=== PATIENT | male | born 1970 | race Caucasian/White ===

== ENCOUNTER 2019-01-31 16:02 | Emergency (ER) | payer BC, SELFPAY ==
[2019-01-31 16:04] VITALS: BP 165/86; PULSE 95; RESP 16; TEMP 36.3; O2SAT 98; BMI 39.2
[2019-01-31] MEDS: HYDROmorphone 1 MG/ML Syringe IM ×2 (16:36→18:03)
--- NOTE | 2019-01-31 17:46 | ED.VISSUMM ---
- ER Visit Summary Date of Service: 01/31/19 Chief Complaint: [Abdominal pain] History of Present Illness: The patient is a 48 M [presents to the emergency department complaint of abdominal pain that he said for about 2 days. Patient states that he coughed and developed the pain. Patient was seen at the emergency department at [facility] yesterday and had a CT scan including blood work and was told that he may have a small kidney stone near the prostate and the urethra. Patient states the pain feels different than kidney stones which she is had in the past. Patient states the pain is sharp and severe especially worse with movement and cough. Patient was seen by his primary care physician today and referred to the emergency department because of continued pain. Patient also had complained of having one episode of black tarry stool yesterday. Denies any fever. He denies nausea or vomiting. Patient has history of kidney stones.] Physical Examination: [HEENT-PERRLA, EOMI. Cranial nerves II through XII grossly intact. TMs clear. Mucous membranes moist. No adenopathy. Cardiovascular-regular rate and rhythm without murmur or ectopy Lungs-clear to auscultation, chest wall stable without crepitus or subcu emphysema Abdomen-normoactive bowel sounds, soft. Patient has tenderness over the left abdomen that reproduces his pain especially the abdominal musculature. Patient also has some tenderness over the left lower ribs anteriorly. There is no rebound, rigidity, or pedal signs. Extremities-intact ?4, normal range of motion, normal pulses, atraumatic] Test Results: [Patient refused any testing other than I did do a Hemoccult which was negative for blood. Able to retrieve the patient's information from yesterday's visit in the emergency department at [place] which time he had a white blood cell count of 11.1, hemoglobin 15.5, hematocrit 45, platelets 255. Chemistries were unremarkable. His glucose was 244. His lactate was slightly elevated 2.4. Patient had a CT scan of the M pelvis without contrast was read by radiology as no abscess obstruction on flat Tory process noted. Patient had a tiny left renal calculus measuring 2 mm as well as questionable central urethral stone at the level of the prostate.] Emergency Department Course and Treatment: [She was medicated with Dilaudid 1 mg IM and he continued complaint of pain was given a second dose of Dilaudid IM. I offered to repeat some of the blood work and potentially perform repeat imaging however he is refusing and states that he just wants something for the pain in he will follow-up with his primary care physician. I suspect most likely etiology is abdominal wall strain.] Also offered to admit him for pain control which she refused. Treatment Plan: [We will up with primary care physician 3 to 5 days. Patient advised to return if worsening pain, fever, vomiting, or conditions worsen anyway.] Disposition: [Discharged home in stable condition.] Impression: [Abdominal pain-suspect abdominal wall strain] This note was generated with [email or web address] dictation software. It may contain incorrect words, spelling, and punctuation that were not noted in review of the chart prior to signing ED Disposition - Plan for ED Patient: Referrals: Vik Javed MD [Primary Care Provider] -
--- NOTE | 2019-01-31 17:50 | ED.DEP ---
ED Disposition - Plan for ED Patient: Instructions: ABDOMINAL PAIN, Unkown Cause, (Male) Prescriptions: Oxycodone [Oxyir] 5 mg PO Q4H PRN PRN 4 Days #14 tab PRN Reason: Pain Score 4-10/10 Prescription Printed Referrals: Vik Javed MD [Primary Care Provider] - 3-5 Days
[2019-01-31 18:20] VITALS: BP 146/96; PULSE 86
[2019-01-31 18:23] VITALS: BP 146/96; PULSE 86; RESP 17
== END 2019-01-31 18:25 | disposition home or self-care (01) ==
LOC: ED 16:43
PROVIDERS: Emergency Provider Emergency Medicine; Family Provider Family Medicine; PCP Family Medicine
DX: S39.011A Strain of muscle, fascia and tendon of abdomen, initial encounter (principal); N20.0 Calculus of kidney; R19.5 Other fecal abnormalities; X58.XXXA Exposure to other specified factors, initial encounter; Y93.9 Activity, unspecified; Y92.9 Unspecified place or not applicable; Z87.442 Personal history of urinary calculi; F17.200 Nicotine dependence, unspecified, uncomplicated
CPT/HCPCS: 82274; 96372; 99282

== ENCOUNTER 2019-02-08 14:35 | Emergency (ER) | payer BC, SELFPAY ==
[2019-02-08 14:37] VITALS: BP 179/91; PULSE 118; RESP 18; TEMP 36.8; O2SAT 96; BMI 39.4
[2019-02-08 14:45] LABS: Bedside Glucose 204 mg/dL (70-110)
--- NOTE | 2019-02-08 15:04 | EKG12_ITS ---
Test Reason : Blood Pressure : / mmHG Vent. Rate : 100 BPM Atrial Rate : 100 BPM P-R Int : 124 ms QRS Dur : 074 ms QT Int : 334 ms P-R-T Axes : 048 046 030 degrees QTc Int : 430 ms Normal sinus rhythm Normal ECG Confirmed by KIKO SORIA, MARILEE ([id number]), managing editor ROBBIE NIETO ([id number]) on 02/12/2019 9:25:16 AM Referred By: CHIARA Confirmed By:NATALY HOOVER MD
--- NOTE | 2019-02-08 15:05 | CT_ITS ---
STUDY: CT ABDOMEN AND PELVIS WITH CONTRAST REASON FOR EXAM: Male, 48 years old. Pain RADIATION DOSAGE (If Supplied By Facility): DLP = ( 1230.69 ) mGycm TECHNIQUE: Transaxial images were obtained from the dome of the diaphragm to the symphysis pubis without oral contrast. 100 ml of Gastrografin and amp;amp; 100mL Isovue-370 contrast was administered. Sagittal and coronal images were reconstructed. Individualized dose optimization techniques were used for this CT. COMPARISON: None. FINDINGS: The visualized lung bases are clear. The visualized portions of the heart and pericardium are within normal limits. There are no calcified gallstones present. The liver is within normal limits. There are no suspicious hepatic lesions. The spleen is normal in size. The pancreas is within normal limits. The adrenal glands are within normal limits. There are no obstructing renal stones. There is no hydronephrosis. There are no focal renal lesions. Normal visualized stomach. There is no bowel obstruction or inflammation. There is a small right inguinal fat-containing hernia. The appendix is normal. The aorta is normal in caliber. There is no abdominal or pelvic free air, free fluid, fluid collection or lymphadenopathy. There are no destructive osseous lesions. CT/Abdomen/Pelvis WITH Contrast IMPRESSION: No acute abdominal or pelvic pathology. Small right inguinal fat-containing hernia. Electronically Signed: Jey Hawkins, at 17:12 EST Tel , Service support ,
--- NOTE | 2019-02-08 15:06 | ED.VISSUMM ---
- ER Visit Summary Date of Service: 02/08/19 Chief Complaint: Abdominal pain History of Present Illness: The patient is a 48 M who presents with abdominal pain that has been progressively worse over the past 2 weeks. Patient states the pain is worse over the left upper quadrant. Patient states the pain is also in the periumbilical area. Patient admits to nausea but denies any vomiting. Patient admits to diarrhea but denies any melena or hematochezia. Patient admits to some hematuria. Patient states he was recently diagnosed with a kidney stone. Patient states his pain is constant aching but sharp with coughing. Physical Examination: Vital signs are stable except for mild tachycardia of 118. Patient is afebrile. Patient is in no acute distress. Oral mucosa is pink and moist. Neck is supple. Trachea is midline. There is no JVD. Heart was regular and tachycardic. Lungs are clear and equal bilaterally. Abdomen is soft. Bowel sounds are normal. There is left upper quadrant and right upper quadrant tenderness. There is no rebound noted. There is some voluntary guarding noted. Cranial nerves II through XII are intact. There are no focal motor or sensory deficits noted. Test Results: CBC shows a mild leukocytosis of 13.9. Comprehensive metabolic profile showed a glucose of 191 but was otherwise within normal limits. Urinalysis showed occult blood of 25 and ketones of 15 but there is no evidence of urinary tract infection. CT scan of the abdomen and pelvis was obtained. There is no acute intra-abdominal pathology noted. EKG showed normal sinus rhythm with a rate of 100. There is no acute ST or T wave changes. Emergency Department Course and Treatment: Patient was given a dose of morphine and Zofran here. Patient was still having pain but his nausea was improved. Patient complained of worsening heartburn as well. Patient was given a GI cocktail and a repeat dose of morphine. Case was discussed with Dr. Rosas who is covering for Dr. Javed. He recommended obtaining a hemoglobin A1c and patient will follow up with Dr. Javed in the office. Patient was given a prescription for Prilosec. Patient understood and was agreeable with the plan. All questions were answered. Disposition: Discharge home Impression: Left upper quadrant abdominal pain This note was generated with [employer]ation software. It may contain incorrect words, spelling, and punctuation that were not noted in review of the chart prior to signing ED Disposition - Plan for ED Patient: Disposition: Home or Assisted Living Diagnosis: Left upper quadrant abdominal pain of unknown etiology Instructions: ABDOMINAL PAIN, Unkown Cause, (Male) Prescriptions: Omeprazole [Prilosec] 20 mg PO DAILY #30 cap Prescription Printed Referrals: Vik Javed MD [Primary Care Provider] - 3-5 Days
[2019-02-08] MEDS: 0.9% Normal Saline 1,000 ML 1000 ML IV (15:16)
[2019-02-08] MEDS: Morphine 4 MG/ML Syringe IV ×2 (15:16→18:51)
[2019-02-08] MEDS: Ondansetron 4 MG/2 ML Vial IV (15:16)
[2019-02-08 15:22] LABS: Absolute Lymphocyte Count 4.34 X10^3/uL (0.83-4.51); Absolute Neutrophil Count 8.6 X10^3/uL (2.0-7.7); Basophil# 0.05 X10^3/uL; Basophil% 0.4 % (0-1); Eosinophil# 0.09 X10^3/uL; Eosinophils% 0.6 % (0-5); Hemoglobin 15.3 g/dL (13.0-16.5); Lymphocyte # 4.34 X10^3/ul (4.0); Lymphocyte % 31.2 % (19-41); Mean Corp Hgb Conc 34.8 g/dL (32-36); Mean Corpuscular Volume 89.2 fL (80-94); Mean Platelet Vol. 11.2 fl (6.2-12.0); Monocyte# 0.77 X10^3/uL; Monocyte% 5.5 % (0-10); NRBC Flagged by Analyzer 0 % (0-5); Neutrophil % 61.7 % (47-70); Platelet Count 247 K/mm3 (150-450); RBC Distribution Width CV 11.9 % (11.6-14.6); RBC Distribution Width SD 38.5 fl (35.1-43.9); Red Blood Count 4.93 M/mm3 (4.6-6.2); White Blood Count 13.9 K/mm3 (4.4-11.0)
[2019-02-08 15:34] LABS: AST(SGOT) 28 U/L (15-37); Alanine Aminotransfer ALT/SGPT 57 U/L (16-61); Albumin, Serum 3.7 g/dL (3.2-5.0); Alkaline Phosphatase 75 U/L (45-117); Anion Gap 8 (5-15); BUN 14 mg/dL (7-18); BUN/Creat Ratio 16.4 RATIO (10-20); Calcium,Total 8.9 mg/dL (8.5-10.1); Chloride 106 mmol/L (98-107); Creatinine, Serum 0.85 mg/dL (0.70-1.30); EST Glomerular Filtration Rate 102 mL/min (>60); Est Glom Filt Rate - Afr Amer 123 mL/min (>60); Estimated Creatinine Clearance 107.44 ml/min; Globulin 3.7 g/dL (2.2-4.2); Glucose 191 mg/dL (74-106); Lipase 191 U/L (73-393); Potassium 3.8 mmol/L (3.5-5.1); Protein, Total 7.4 g/dL (6.4-8.2); Sodium Level 140 mmol/L (136-145)
[2019-02-08 16:34] LABS: Bacteria 0 SEEN /hpf (None Seen); Mucous, Urine 0 SEEN /hpf (<or=2+); Squamous Epithelial Cells - UA 0 SEEN /hpf (0-5)
[2019-02-08 16:38] LABS: Color, Urine Yellow (Yellow); Glucose, Dipstick 250 mg/dl (Normal); Ketone-Dipstick 15 mg/dl (Negative); Leukocyte Esterase-Dipstick Negative /ul (Negative); Nitrite-Dipstick Negative (Negative); Occult Blood-Urine 25 /ul (Negative); Protein-Dipstick Negative (Negative); Specific Gravity, Urine 1.025 (1.002-1.030); Urine Bilirubin Dipstick Negative (Negative); Urine Clarity Clear (Clear); Urine Urobilinogen Normal (Normal)
[2019-02-08 16:47] LABS: Red Blood Cells-Urine 0-5 SEEN /hpf (0-5); White Blood Cells 0-5 SEEN /hpf (0-5)
[2019-02-08 17:00] VITALS: PULSE 95; RESP 16; O2SAT 95
[2019-02-08 18:02] LABS: Lactic Acid 1.1 mmol/L (0.4-2.0)
[2019-02-08] MEDS: Mag Hydrox/Al Hydrox/Simeth 30 ML UDC PO (18:51)
[2019-02-08 19:07] LABS: Hemoglobin A1c 6.9 % (4.2-6.3)
[2019-02-08 19:26] VITALS: BP 114/71; PULSE 89; RESP 16; O2SAT 96
== END 2019-02-08 19:36 | disposition home or self-care (01) ==
PROVIDERS: Emergency Provider Emergency Medicine; Family Provider Family Medicine; PCP Family Medicine
DX: R10.12 Left upper quadrant pain (principal); R10.33 Periumbilical pain; R11.0 Nausea; R19.7 Diarrhea, unspecified; R31.9 Hematuria, unspecified; R68.83 Chills (without fever); R00.2 Palpitations; R05 Cough; M54.9 Dorsalgia, unspecified; K21.9 Gastro-esophageal reflux disease without esophagitis; L40.9 Psoriasis, unspecified; Z87.442 Personal history of urinary calculi; F17.200 Nicotine dependence, unspecified, uncomplicated
CPT/HCPCS: 74177; 80053; 81001; 82009; 82962; 83036; 83605; 83690; 85025; 93005; 96361; 96374; 96375; 96376; 99283; J7030; Q9967; A4216; J2405

== ENCOUNTER → 2019-11-15 16:26 | Outpatient (CLI) | payer BC, SELFPAY ==
[2019-11-15 18:00] LABS: Anion Gap 6 (5-15); BUN 12 mg/dL (7-18); BUN/Creat Ratio 13.2 RATIO (10-20); Chloride 104 mmol/L (98-107); Cholesterol 154 mg/dL (200); Creatinine, Serum 0.91 mg/dL (0.70-1.30); EST Glomerular Filtration Rate 95 mL/min (>60); Est Glom Filt Rate - Afr Amer 115 mL/min (>60); Glucose 102 mg/dL (74-106); High Density Lipoprotein 37 mg/dL; Sodium Level 139 mmol/L (136-145); Triglycerides 161 mg/dL; Very Low Density Lipoprotein 32 mg/dL (5-40)
== END ==
PROVIDERS: PCP Family Medicine; Referring Provider Family Medicine; Visit Provider Family Medicine
DX: E11.9 Type 2 diabetes mellitus without complications (principal)
CPT/HCPCS: 36415; 80048; 80061

== ENCOUNTER → 2020-01-17 16:33 | Outpatient (CLI) | payer BC, SELFPAY ==
--- NOTE | 2020-01-17 16:36 | RAD_ITS ---
HISTORY: knee pain Technique: Right Knee; AP, lateral, and oblique radiographs Comparison: None available Findings: No acute fracture or dislocation. Osseous mineralization, joint spaces, and alignment otherwise appear preserved as imaged. The distal metatarsal to the right knee is thickened and asymmetric. This thickening is much greater medially. No focal abnormality or radiopaque foreign body is seen in the surrounding soft tissues. RAD/Knee 4 or More Views IMPRESSION: Asymmetric thickening to the medial aspect of the distal femoral metaphysis. This is likely related to an osteochondroma. Appearance on the lateral aspect of the proximal metaphysis of the tibia, at the proximal tibiofibular articulation may be due to another osteochondroma. at 0600 Reported and signed by: Gregory Downey MD Electronically Signed: Gregory Downey MD at 5:59 EDT Tel , Service support ,
--- NOTE | 2020-01-17 16:36 | RAD_ITS ---
STUDY: X-RAY - LEFT KNEE REASON FOR EXAM: Male, 49 years old. knee pain TECHNIQUE: 4 view(s) of the knee. COMPARISON: None. FINDINGS: Normal visualized distal femur. Healed fractures the proximal tibia and fibula. Normal proximal tibiofibular articulation. Normal medial femorotibial compartment. Normal lateral femorotibial compartment. Normal patellofemoral articulation. The soft tissue structures are unremarkable. RAD/Knee 4 or More Views IMPRESSION: Healed fractures of the proximal tibia and fibula. No acute fracture or dislocation. Electronically Signed: Ernesto Ríos MD at 7:49 EDT Tel , Service support ,
== END ==
LOC: MTRAD 16:35
PROVIDERS: PCP Family Medicine; Referring Provider Family Medicine; Visit Provider Family Medicine
DX: M25.562 Pain in left knee (principal); M25.561 Pain in right knee
CPT/HCPCS: 73564

== ENCOUNTER → 2020-02-05 | Outpatient (CLI) | payer BC, SELFPAY | END | disposition home or self-care (01) | LOC: LABSPEC 17:42 | PROVIDERS: PCP Family Medicine; Visit Provider Physician Assistant Surgical | DX: Z20.828 Contact with and (suspected) exposure to other viral communicable diseases (principal) | CPT/HCPCS: 87635; U0003 ==

== ENCOUNTER → 2020-03-27 17:03 | Outpatient (CLI) | payer BC, SELFPAY ==
[2020-03-27 18:19] LABS: Hemoglobin A1c 5.7 % (3.8-5.6)
[2020-03-27 18:52] LABS: ALB/GLOB Ratio 1.2 RATIO (0.9-2.4); AST(SGOT) 11 U/L (15-37); Alanine Aminotransfer ALT/SGPT 29 U/L (16-61); Alkaline Phosphatase 63 U/L (45-117); Anion Gap 6 (5-15); BUN 17 mg/dL (7-18); BUN/Creat Ratio 20.5 RATIO (10-20); Calcium,Total 8.8 mg/dL (8.5-10.1); Chloride 104 mmol/L (98-107); Cholesterol 146 mg/dL (200); Creatinine, Serum 0.83 mg/dL (0.70-1.30); EST Glomerular Filtration Rate 105 mL/min (>60); Est Glom Filt Rate - Afr Amer 127 mL/min (>60); Globulin 3.4 g/dL (2.2-4.2); Glucose 100 mg/dL (74-106); High Density Lipoprotein 35 mg/dL; Potassium 3.8 mmol/L (3.5-5.1); Protein, Total 7.4 g/dL (6.4-8.2); Sodium Level 137 mmol/L (136-145); Thyroid Stim Hormone (TSH) 0.72 uIU/mL (0.358-3.74); Triglycerides 176 mg/dL; Very Low Density Lipoprotein 35 mg/dL (5-40)
== END ==
PROVIDERS: PCP Family Medicine; Referring Provider Family Medicine; Visit Provider Family Medicine
DX: I10 Essential (primary) hypertension (principal); E11.9 Type 2 diabetes mellitus without complications
CPT/HCPCS: 36415; 80053; 80061; 83036; 84443

== ENCOUNTER → 2020-04-11 10:03 | Outpatient (CLI) | payer BC, SELFPAY | PROVIDERS: PCP Family Medicine; Referring Provider Physician Assistant Surgical; Visit Provider Physician Assistant Surgical | DX: Z11.59 Encounter for screening for other viral diseases (principal) | CPT/HCPCS: 87635; C9803; U0005; U0003 ==

== ENCOUNTER → 2021-03-17 | Outpatient (CLI) | payer BC, SELFPAY | END | disposition home or self-care (01) | LOC: LABSPEC 14:50 | PROVIDERS: PCP Family Medicine; Visit Provider Nurse Practitioner Family | DX: J06.9 Acute upper respiratory infection, unspecified (principal) | CPT/HCPCS: 87633; 87635; U0005; U0003 ==

== ENCOUNTER 2022-02-18 16:20 | Outpatient (CLI) | payer OTHER, SELFPAY ==
--- NOTE | 2022-02-18 16:27 | RAD_ITS ---
INDICATION: HEEL PAIN EXAMINATION/TECHNIQUE: X-RAY - LEFT XR Calcaneus Min 2 Views 2 VIEWS COMPARISON: None. FINDINGS: SOFT TISSUES: No soft tissue swelling or gas. No radiopaque foreign body. BONES/JOINTS: No acute fracture. Preservation of the joint spaces. No sclerotic or destructive changes observed. RAD/Calcaneus min 2 Views IMPRESSION: Unremarkable study. Electronically Signed: Alex Scales MD at 21:28 EST ,
== END 2022-02-18 23:59 | disposition home or self-care (01) ==
PROVIDERS: PCP Family Medicine; Referring Provider Family Medicine; Visit Provider Family Medicine
DX: M79.672 Pain in left foot (principal)
CPT/HCPCS: 73650

== ENCOUNTER → 2022-03-25 | Outpatient (CLI) | payer OTHER, SELFPAY ==
[2022-03-25 18:18] LABS: Anion Gap 10 (5-15); BUN 16 mg/dL (7-18); BUN/Creat Ratio 22.8 RATIO (10-20); Calcium,Total 9.3 mg/dL (8.5-10.1); Chloride 100 mmol/L (98-107); Cholesterol 152 mg/dL (200); EST Glomerular Filtration Rate 126 mL/min (>60); Est Glom Filt Rate - Afr Amer 152 mL/min (>60); Glucose 93 mg/dL (74-106); High Density Lipoprotein 37 mg/dL; Sodium Level 137 mmol/L (136-145); Triglycerides 226 mg/dL; Very Low Density Lipoprotein 45 mg/dL (5-40)
== END | disposition home or self-care (01) ==
LOC: MFPLAB 16:13
PROVIDERS: PCP Family Medicine; Visit Provider Family Medicine
DX: E11.9 Type 2 diabetes mellitus without complications (principal)
CPT/HCPCS: 36415; 80048; 80061

== ENCOUNTER → 2022-05-27 | Outpatient (CLI) | payer OTHER, SELFPAY ==
[2022-05-29 15:07] LABS: QNTFERON TB Mitogen Value > 10.00 IU/mL (.); QNTFERON TB Nil Value 0.01 IU/mL (.); QNTFERON TB1+ Ag Value 0.01 IU/mL (.); QNTFERON TB2+ Ag Value 0 IU/mL (.)
[2022-05-29 15:17] LABS: Hepatitis B Core Ab Total Negative (Negative); QNTIFERON TB Positive Criteria Negative (Negative)
== END | disposition home or self-care (01) ==
LOC: MFPLAB 15:46
PROVIDERS: PCP Family Medicine; Visit Provider Physician Assistant Medical
DX: L40.0 Psoriasis vulgaris (principal); L40.59 Other psoriatic arthropathy; Z79.899 Other long term (current) drug therapy; L40.8 Other psoriasis
CPT/HCPCS: 36415; 86480; 86704

== ENCOUNTER → 2023-05-24 | Outpatient (CLI) | payer OTHER, SELFPAY ==
--- NOTE | 2023-05-24 07:33 | VDLE_ITS ---
Reason For Study: LLE Pain RIGHT LEFT CFV is compressible, spontaneous, phasic, GSV is normal. competent and demonstrates normal CFV is compressible, spontaneous, phasic, augmentation. competent, and demonstrates normal Procedure augmentation. This is a venous duplex using B-mode, color FV is compressible, spontaneous, phasic, flow and spectral Doppler. competent and demonstrates normal Exam performed in department. augmentation. The exam was diagnostic. POP V is compressible, spontaneous, phasic, A preliminary report was called and/or faxed competent and demonstrates normal to Dr. Javed office. augmentation. T/P Trunk is compressible. PTV is compressible. LT PerV is compressible. VL/Venous Duplex US, Unilateral Interpretation Summary There is no evidence of left lower extremity deep vein thrombosis. Left great s aphenous vein appears patent and compressible segmentally. Normal flow patterns right common femoral vein Ordering Physician: Vik Javed Referring Physician: Vik Javed Performed By: Leland Maria RVT
--- OUTSIDE RECORDS SUMMARY | 2023-05-24 08:04 | XMS RPT_ITS | CCD ---
Author Name Unknown Address [address] [place] [address] Organization [facility] Care Team Providers Care Gold Tooler Name Role Phone DEBORA POTTS Unavailable Unavailable POTTS, RAY Unavailable Unavailable NO REFERRING DR Unavailable Unavailable [facility] Unavailable Unavailable POTTS III, RAY ANN MARIE Unavailable Unavaila ble POTTS III, RAY ANN MARIE Unavailable Unavaila Vik Rhoades Primary Care Provider Vik Watts Primary Care Provider [phone] Vik Watts Primary Care Provider [phone] Vik Watts MD Primary Care Provider IWONA SORIA, PA Lee Attending Unavail sonia WATTS MD, DR VIK Quezada Primary Care Unavailabl e Allergies Allergy Classification Reported Allergen(s) Allergy Type Date of Onset Reaction(s) Facility (7 sources) Penicillins; Translations: [PENICILLINS] Propensity to adverse reactions (disorder) 5 Other (See Comments), GI Upset [facility] (4 sources) Acetaminophen Drug Allergy 7 Other (See Comments) [place] (2 sources) Lisinopril Drug Allergy 0 Other (See Comments) [place] Medications Current Medications Medication Drug Class(es) Dates Sig (Normalized) Sig (Original) [id number] 200 actuat albuterol 0.09 mg/actuat metered dose inhaler (1 source) beta2-Adrenergic Agonist Start: 10-05-2021 take 2 puff(s) by inhalation every six hours as needed for wheezing albuterol HFA (PROVENTIL HFA, VENTOLIN HFA) 90 mcg/actuation inhaler Indications: Wheezing Inhale 2 Puffs as instructed every 6 hours as needed for wheezing/shortnes s of breath. 1 Inhaler 0 10/05/2021 Active Completed/Discontinued Medications Medication Drug Class(es) Dates Sig (Normalized) Sig (Original) aspirin 81 mg delayed release oral tablet (1 source) Platelet Aggregation Inhibitor, Nonsteroidal Anti-inflammatory Drug Start: 02-14-2017 End: 01-30-2019 take 1 tablet by mouth once daily aspirin EC 81 MG EC tablet Take 1 tablet by mouth daily 30 tablet 0 02/14/2017 01/30/2019 Discontinued cyclobenzaprine hydrochloride 10 mg oral tablet (1 source) Muscle Relaxant Start: 03-22-2014 take 1 tablet by mouth three times daily as needed for muscle spasms cyclobenzaprine (FLEXERIL) 10 mg tablet Indications: Right shoulder pain , Trapezius muscle spasm Take 1 tablet by mouth three times daily as needed for Muscle Spasm. Causes drowsiness. 15 tablet 0 03/22/2014 Active Problems Active Problems Problem Classification Problem Date Documented Da te Episodic/Chronic Diabetes mellitus without complication (2 sources) Diabetes mellitus; Translations: [DM (diabetes mellitus)] 09-10-2019 Chronic Immunizations and screening for infectious disease (1 source) Suspected disease caused by 2019-nCoV; Translations: [Suspected COVID-19 virus infection] Episodic Nonspecific chest pain (5 sources) Chest pain; Translations: [Precordial pain] 09-04-2019 Episodic Other lower respiratory disease (1 source) Wheezing; Translations: [Wheezing] Episodic Unclassified (1 source) Unknown / UNK(Unknown) Onset: 12-10-2016 Past or Other Problems Problem Classification Problem Date Documented Da te Episodic/Chronic Abdominal pain (1 source) Upper abdominal pain; Translations: [Pain of upper abdomen] Episodic Calculus of urinary tract (1 source) Renal colic; Translations: [Renal colic] Episodic Other connective tissue disease (4 sources) Rupture of tendon of biceps, long head; Translations: [Rupture long head biceps tendon, right, initial encounter] Onset: 01-18-2017 06-27-2017 Episodic Sprains and strains (4 sources) Sprain of upper extremity; Translations: [Sprain of right upper arm] Onset: 01-18-2017 06-27-2017 Episodic Unclassified (1 source) RIGHT SHOULDER, SPRAIN Onset: 12-10-2016 Results Test Name Value Interpretation Reference Range Facil ity Vital Signs Date Time Vital Sign Value Performing Clinician Facility 10-05-2021 08:25-0400 Body temperature 97.2 [degF] Carmel Praisler-Wood ALCOHOL AND DRUG COUNSELOR.GRANT COORDINATOR Work Phone: [facility] 10-05-2021 08:25-0400 Body weight 96.16 kg Carmel Praisler-Wood ALCOHOL AND DRUG COUNSELOR.GRANT COORDINATOR Work Phone: [facility] 10-05-2021 08:25-0400 Diastolic blood pressure 78 mm[Hg] Carmel Praisler-Wood ALCOHOL AND DRUG COUNSELOR.GRANT COORDINATOR Work Phone: [facility] 10-05-2021 08:25-0400 Heart rate 82 /min Carmel Praisler-Wood ALCOHOL AND DRUG COUNSELOR.GRANT COORDINATOR Work Phone: [facility] 10-05-2021 08:25-0400 Respiratory rate 20 /min Carmel Praisler-Wood ALCOHOL AND DRUG COUNSELOR.GRANT COORDINATOR Work Phone: [facility] 10-05-2021 08:25-0400 SaO2% (BldA) [Mass fraction] 98 % Carmel Praisler-Wood ALCOHOL AND DRUG COUNSELOR.GRANT COORDINATOR Work Phone: [facility] 10-05-2021 08:25-0400 Systolic blood pressure 126 mm[Hg] Carmel Praisler-Wood ALCOHOL AND DRUG COUNSELOR.[facility] Work Phone: [facility] 08-23-2019 13:01-0400 BP Diastolic 62 mm[Hg] [facility] , [place] 08-23-2019 13:01-0400 BP Systolic 108 mm[Hg] [facility] , [place] 08-23-2019 13:01-0400 Pulse (Heart Rate) 96 /min [facility], [place] 08-23-2019 13:01-0400 Pulse Oximetry 95 % [facility] , [place] 08-23-2019 12:00-0400 Respiratory Rate 18 /min [facility], [place] 08-23-2019 11:41-0400 Body Temperature 97.3 [degF] [facility], [place] 01-30-2019 09:56-0500 BP Diastolic 63 mm[Hg] [facility] [place] 01-30-2019 09:56-0500 BP Systolic 101 mm[Hg] [place] 01-30-2019 09:56-0500 Pulse (Heart Rate) 85 /min [place], [place] 01-30-2019 09:56-0500 Pulse Oximetry 92 % Juan Antonio [place], [place] 01-30-2019 09:56-0500 Respiratory Rate 18 /min Juan Antonio [place], [place] 01-30-2019 07:17-0500 BMI (Body Mass Index) 39.54 kg/m2 Juan Antonioebenezer Cox [place], [place] 01-30-2019 07:17-0500 Body Temperature 97.59 [degF] [place] 01-30-2019 07:17-0500 Body weight 117.94 kg [place], [place] Encounters Encounter Date Encounter Type Care Provider Facility Start: 01-19-2023 End: 01-19-2023 Emergency department patient visit PA BUSTILLO MD Facility:B Start: 10-05-2021 End: 10-05-2021 Patient encounter procedure Carmel Hurst APRN.CNP Work Phone: [facility] Procedures Date Procedure Procedure Detail Performing Clinician Start: 10-15-2019 Myocardial spect mul tiple studies Zee Gilbert Work Phone: Start: 09-28-2019 ECHOCARDIOGRAM EXERC ISE STRESS TEST Zee I Ofelia Work Phone: Start: 08-23-2019 Assay of troponin quantitative Anthony Hernández Work Phone: Start: 08-23-2019 Ct thorax w/o contra st material Anthony Hernández Work Phone: Start: 08-23-2019 Radiologic exam ches t single view Anthony Hernández Work Phone: Start: 08-23-2019 Blood count complete auto&auto difrntl wbc Anthony Hernández Work Phone: Start: 08-23-2019 Assay of troponin quantitative Anthony Hernández Work Phone: Start: 08-23-2019 Comprehensive metabo lic panel Anthony Hernández Work Phone: Start: 08-23-2019 Ecg routine ecg w/le ast 12 lds w/i&r Anthony Hernández Work Phone: Start: 01-30-2019 Urnls dip stick/tabl et rgnt auto w/o microscopy Juan Antonio Cox Work Phone: Start: 01-30-2019 Radiologic exam abdo men 2 views Juan Antonio Cox Work Phone: Start: 01-30-2019 Ct abdomen & pelvis w/o contrast material Juan Antonio Cox Work Phone: Start: 01-30-2019 Assay of lactate Juan Antonio Cox Work Phone: Start: 01-30-2019 Blood count complete auto&auto difrntl wbc Juan Antonio Cox Work Phone: Start: 01-30-2019 Comprehensive metabo lic panel Juan Antonio Cox Work Phone: Start: 01-30-2019 Prothrombin time Juan Antonio Cox Work Phone: Plan of Treatment Date Care Activity Detail Author Start: 11-19-2021 Influenza vaccination INFLUENZA (#1) [facility] Start: 10-05-2021 End: 10-19-2021 Influenza virus A and B RNA and SARS-CoV-2 (COVID-19) N gene panel - Respiratory specimen by NILA with probe detection COVID WITH FLUA+B, ROUTINE Microbiology Routine Suspected COVID-19 virus infection Expected: 10/05/2021, Expires: 10/19/2021 [facility] Work Phone: Payers Date Payer Category Payer Private Health Insurance [id number] 2021 Private Health Insurance AETNA AETNA MANAGED CHOICE POS [id number] 2021-Present [phone] [address] [place] [address] POS [id number] 2019 Unknown BCBS BC[place] - [place] P PO [id number] 2019-Present [address] [place] [address] [id number] 2016 Unknown COMPMANAGEMENT COMPMANAGEMENT (MCO) [id number] 2016-Present [phone] [address] [place] [address] [id number] 2016 Unknown COMPMANAGEMENT COMPMANAGEMENT (MCO) [id number] 2016-Present [phone] [address] [place] [address] [id number] 1971 Unknown [id number] Unknown [id number] Unknown [id number] Social History Date Type Detail Facility Start: 08-23-2019 End: 01-28-2021 Tobacco smoking status NHIS Current every day smoker [facility] Work Phone: History of tobacco use [facility] Start: 06-07-2017 End: 08-23-2019 Cigarettes smoked current (pack per day) - Reported [place] Start: 06-07-2017 End: 08-23-2019 Alcohol intake Current non-drinker of alcohol (finding) [place] Start: 1970 Sex Assigned At Not on file M ADRIÁN Valdes Exposure to SARS-CoV -2 (event) Unable to assess ADRIÁN Otero Start: 09-10-2019 End: 01-28-2021 Tobacco use and exposure Never used ADRIÁN Otero Start: 09-25-2021 End: 10-05-2021 Exposure to SARS-CoV-2 (event) Yes [facility] Work Phone: Influenza virus A and B RNA and SARS-CoV-2 (COVID-19) N gene panel NILA+probe (Resp) 10-05-2021 Note Date & Type Note Facility 10-05-2021 Influenza virus A and B RNA and SARS-CoV-2 (COVID-19) N gene panel NILA+probe (Resp) COVID 19 RESULT: SARS-CoV-2 (Agent of COVID-19) Detected by RT-PCR or equivalent method. beltran [id number] (PIETER)_EUA This test was developed and its performance characteristics determined by [facility]'s [facility] [place]. This test has been authorized by FDA under an Emergency Use Authorization (EUA). This test has been validated in accordance with the FDA's Guidance Document Policy for Diagnostics Testing in Laboratories Certified to Perform High Complexity Testing under CLIA prior to Emergency use Authorization for Coronavirus Disease 2019 during the Public Health Emergency issued on May 19, 2019. Test performed by [facility], [facility] [place], [address] [place] [address]. INFLUENZA A PCR: Negative for Influenza A by RT-PCR INFLUENZA B PCR: Negative for Influenza B by RT-PCR [facility] Progress note 10-05-2021 Note Date & Type Note Facility 10-05-2021 Note HNO ID: [id number] Author: Carmel Hurst APRN.GRANT COORDINATOR Service: ? Author Type: Nurse Practitioner Type: Progress Notes Filed: 10/05/2021 8:47 AM Note Text: Subjective HPI Charlie Devi is a 51 year old male who presents with cough, congestion, headache, sore throat, loss of smell since yesterday. He was exposed to COVID recently. He has taken ibuprofen for his headache. Review of Systems Constitutional: Positive for malaise/fatigue. Negative for chills and fever. HENT: Positive for congestion and sore throat. Negative for ear pain. Respiratory: Positive for cough, sputum production, shortness of breath and wheezing. Cardiovascular: Negative for chest pain. Musculoskeletal: Negative for myalgias. Neurological: Positive for headaches. BP 126/78 Pulse 82 Temp 36.2 ?C (97.2 ?F) Resp 20 Wt 96.2 kg (212 lb) SpO2 98% No past medical history on file. No past surgical history on file. ALLERGIES Penicillins MEDICATIONS losartan (COZAAR) 50 mg tablet Take 50 mg by mouth. metFORMIN (GLUCOPHAGE) 1,000 mg tablet Take 1,000 mg by mouth. albuterol HFA (PROVENTIL HFA, VENTOLIN HFA) 90 mcg/actuation inhaler Inhale 2 Puffs as instructed every 6 hours as needed for wheezing/shortness of breath. Inhalational Spacing Device 1 Device one time only for 1 dose. benzonatate (TESSALON PERLE) 100 mg capsule Take 1 capsule by mouth three times daily as needed for up to 10 days. cyclobenzaprine (FLEXERIL) 10 mg tablet Take 1 tablet by mouth three times daily as needed for Muscle Spasm. Causes drowsiness. No family history on file. Social History Tobacco Use - Smoking status: Current Every Day Smoker - Smokeless tobacco: Never Used Substance Use Topics - Alcohol use: Not on file - Drug use: Not on file Objective Physical Exam Vitals and nursing note reviewed. HENT: Mouth/Throat: Mouth: Mucous membranes are moist. Pharynx: Oropharynx is clear. No oropharyngeal exudate or posterior oropharyngeal erythema. Cardiovascular: Rate and Rhythm: Normal rate and regular rhythm. Heart sounds: Normal heart sounds. Pulmonary: Effort: Pulmonary effort is normal. No respiratory distress. Breath sounds: Examination of the right-lower field reveals wheezing. Examination of the left-lower field reveals wheezing. Wheezing present. No rales. Skin: General: Skin is warm and dry. Findings: No erythema or rash. Neurological: Mental Status: He is alert. ASSESSMENT/PLAN: 1. Suspected COVID-19 virus infection - ICD9: V01.79, ICD10: Z20.822 (primary diagnosis) - BENZONATATE 100 MG CAPSULE - COVID WITH FLUA+B, ROUTINE 2. Wheezing - ICD9: 786.07, ICD10: R06.2 - ALBUTEROL SULFATE HFA 90 MCG/ACTUATION AEROSOL INHALER - INHALATIONAL SPACING DEVICE - Follow-up with your PCP in 3-5 days if symptoms have not improved or sooner if symptoms worsen - Discussed red flags and need for immediate medical evaluation if any occur. - Discussed supportive care treatment with fluids, rest and analgesia. - Discussed expected course of illness Carmel Hurst APRN.CNP [facility] History of Present illness Narrative 10-05-2021 aCrmel Hurst APRN.MONSE - 10/05/2021 8:44 AM EDT Note Date & Type Note Facility 10-05-2021 History of Presen t illness Narrative Subjective HPI Charlie Devi is a 51 year old male who presents with cough, congestion, headache, sore throat, loss of smell since yesterday. He was exposed to COVID recently. He has taken ibuprofen for his headache. Review of Systems Constitutional: Positive for malaise/fatigue. Negative for chills and fever. HENT: Positive for congestion and sore throat. Negative for ear pain. Respiratory: Positive for cough, sputum production, shortness of breath and wheezing. Cardiovascular: Negative for chest pain. Musculoskeletal: Negative for myalgias. Neurological: Positive for headaches. BP 126/78 Pulse 82 Temp 36.2 C (97.2 F) Resp 20 Wt 96.2 kg (212 lb) SpO2 98% No past medical history on file. No past surgical history on file. ALLERGIES Penicillins MEDICATIONS losartan (COZAAR) 50 mg tablet Take 50 mg by mouth. metFORMIN (GLUCOPHAGE) 1,000 mg tablet Take 1,000 mg by mouth. albuterol HFA (PROVENTIL HFA, VENTOLIN HFA) 90 mcg/actuation inhaler Inhale 2 Puffs as instructed every 6 hours as needed for wheezing/shortness of breath. Inhalational Spacing Device 1 Device one time only for 1 dose. benzonatate (TESSALON PERLE) 100 mg capsule Take 1 capsule by mouth three times daily as needed for up to 10 days. cyclobenzaprine (FLEXERIL) 10 mg tablet Take 1 tablet by mouth three times daily as needed for Muscle Spasm. Causes drowsiness. No family history on file. Social History Tobacco Use Smoking status: Current Every Day Smoker Smokeless tobacco: Never Used Substance Use Topics Alcohol use: Not on file Drug use: Not on file Objective Physical Exam Vitals and nursing note reviewed. HENT: Mouth/Throat: Mouth: Mucous membranes are moist. Pharynx: Oropharynx is clear. No oropharyngeal exudate or posterior oropharyngeal erythema. Cardiovascular: Rate and Rhythm: Normal rate and regular rhythm. Heart sounds: Normal heart sounds. Pulmonary: Effort: Pulmonary effort is normal. No respiratory distress. Breath sounds: Examination of the right-lower field reveals wheezing. Examination of the left-lower field reveals wheezing. Wheezing present. No rales. Skin: General: Skin is warm and dry. Findings: No erythema or rash. Neurological: Mental Status: He is alert. ASSESSMENT/PLAN: 1. Suspected COVID-19 virus infection - ICD9: V01.79, ICD10: Z20.822 (primary diagnosis) - BENZONATATE 100 MG CAPSULE - COVID WITH FLUA+B, ROUTINE 2. Wheezing - ICD9: 786.07, ICD10: R06.2 - ALBUTEROL SULFATE HFA 90 MCG/ACTUATION AEROSOL INHALER - INHALATIONAL SPACING DEVICE - Follow-up with your PCP in 3-5 days if symptoms have not improved or sooner if symptoms worsen - Discussed red flags and need for immediate medical evaluation if any occur. - Discussed supportive care treatment with fluids, rest and analgesia. - Discussed expected course of illness Carmel Hurst APRN.CNP documented in this encounter [facility] Instructions 10-05-2021 Patient Instructions Note Date & Type Note Facility 10-05-2021 Instructions Carmel Hurst APRN.CNP - 10/05/2021 8:43 AM EDT ASSESSMENT/PLAN: 1. Suspected COVID-19 virus infection - ICD9: V01.79, ICD10: Z20.822 (primary diagnosis) - BENZONATATE 100 MG CAPSULE - COVID WITH FLUA+B, ROUTINE 2. Wheezing - ICD9: 786.07, ICD10: R06.2 - ALBUTEROL SULFATE HFA 90 MCG/ACTUATION AEROSOL INHALER - INHALATIONAL SPACING DEVICE - Follow-up with your PCP in 3-5 days if symptoms have not improved or sooner if symptoms worsen - Discussed red flags and need for immediate medical evaluation if any occur. - Discussed supportive care treatment with fluids, rest and analgesia. - Discussed expected course of illness Carmel Hurst APRN.GRANT COORDINATOR How to Manage Common Symptoms Associated with COVID for Adults Fever- Fever is a temperature over 100.4 F and can occur when the body is fighting an infection. To help treat a fever: Drink plenty of fluids and stay well hydrated. Eat small amounts of easy to digest food. Rest. Your body needs rest to recover, but getting up and moving around the house frequently is a good idea. You should try to continue doing your normal daily activities (bathing, toileting, grooming, cooking), though you will probably feel tired, and need to rest often. Avoid any heavy activity or exercise, as this will increase your body temperature. Dress in light clothing and stay covered in a light sheet. Keep the room temperature cool. Take a slightly warm (not cold or cool) bath, or apply damp washcloths to the forehead and wrists. Cough- Cough is a common symptom associated with COVID and can be bothersome. To help treat a cough: Stay well hydrated. Try warm water or tea with lemon and/or honey to help soothe the cough. Use a humidifier to add moisture to the air. Try a product with menthol, like a cough drop or a rub for your chest such as Vicks, which can help reduce cough. Try cough drops. Avoid smoking and other strong odors or perfumes. Try breathing exercises to keep your lungs open and clear. Take a big deep breath through your nose and hold for 5 seconds before slowly releasing. Repeat frequently, while you are awake. Congestion- Runny nose or nasal congestion can occur with COVID. Treatment can help relieve symptoms: Try OTC nasal saline spray, or nasal saline rinse to relieve mucus congestion. Nasal strips can help keep nasal passages open, to increase airflow. Elevating your head with an extra pillow in bed can help reduce congestion. Using a humidifier can increase moisture in the air, and make breathing easier. Sore Throat- Another common symptom with COVID, can be managed at home by: Stay well hydrated. Gargle with salt water mix teaspoon salt with 1 cup of warm water and gargle. This helps to loosen mucus in the back of the throat and may reduce discomfort. Try ice chips, popsicles or lozenges to soothe the throat. Nausea/Vomiting/Diarrhea- These are common symptoms, and staying hydrated is most important. If you are nauseous or vomiting, start with small sips of water every 10-15 minutes and increase as tolerated. You can try sucking an ice cube too. If tolerating, you can try pedialyte or Gatorade, or flat sprite or mj-rosanne. Start slowly and increase as you are able to. Instead of meals, try smaller, more frequent snacks. Try eating bland foods like crackers, toast, rice, and applesauce. Avoid spicy, greasy or fried foods and dairy containing foods. Even if you aren't feeling hungry due to lack of smell or taste, it is important to try to take in some food when you are able. After drinking and eating, rest in an upright position for up to two hours as needed to help decrease nauseous feelings. Try closing your eyes, avoid moving and watching TV. Avoid strong odors that can make you feel more nauseated. When to seek emergency medical attention Look for emergency warning signs for COVID-19. If having any of these symptoms, seek emergency medical care immediately: Trouble breathing Persistent pain or pressure in the chest New confusion Inability to wake or stay awake Bluish lips or face *This list is not all possible symptoms. Please call your medical provider for any other symptoms that are severe or concerning to you. Beginning Home Isolation Isolation is used to separate people infected with SARS-CoV-2, the virus that causes COVID-19, from people who are not infected. People who are in isolation should stay home until it s safe for them to be around others. In the home, anyone sick or infected should separate themselves from others by staying in a specific sick room or area and using a separate bathroom (if available). Isolation or Quarantine: What's the difference? Quarantine keeps someone who might have been exposed to the virus away from others. Isolation keeps someone who is infected with the virus away from others, even in their home. Who needs to isolate People who have COVID-19 People who have symptoms of COVID-19 and are able to recover at home People who have no symptoms (are asymptomatic) but have tested positive for infection with SARS-CoV-2 Steps to take Stay home except to get medical care Monitor your symptoms. Stay in a separate room from other household members, if possible Use a separate bathroom, if possible Avoid contact with other members of the household and pets Don t share personal household items, like cups, towels, and utensils Wear a mask when around other people, if you are able to When to seek emergency medical attention Look for emergency warning signs* for COVID-19. If someone is showing any of these signs, seek emergency medical care immediately: Trouble breathing Persistent pain or pressure in the chest New confusion Inability to wake or stay awake Bluish lips or face *This list is not all possible symptoms. Please call your medical provider for any other symptoms that are severe or concerning to you. Call 911 or call ahead to your local emergency facility: Notify the ribbon sweatband operator that you are seeking care for someone who has or may have COVID-19. Ending Home Isolation - When you can be around others after you had or likely had COVID-19 When you can be around others after you had or likely had COVID-19 If You Test Positive for COVID-19 (Isolation) Everyone, regardless of vaccination status: 1. Stay home for 5 days. Note: Day 0 is your first day of symptoms or the date of collection of a positive viral test if no symptoms. Day 1 is the first full day after symptoms developed or test specimen was collected. 2. If you have no symptoms or your symptoms are resolving after 5 days, you can leave your house. 3. Continue to wear a mask around others for 5 additional days. If you have a fever, continue to stay home until your fever resolves, even if it is longer than 5 days. If You Were Exposed to Someone with COVID-19 (Quarantine) If you: 1. Have been boosted OR 2. Completed the primary series of Pfizer or Moderna vaccine within the last 6 months OR 3. Completed the primary series of J&J vaccine within the last 2 months THEN: 1. Wear a mask around others for 10 days. 2. Test on day 5, if possible. If you develop symptoms get a test and stay home. If You Were Exposed to Someone with COVID-19 (Quarantine) If you: 1. Completed the primary series of Pfizer or Moderna vaccine over 6 months ago and are not boosted OR 2. Completed the primary series of J&J over 2 months ago and are not boosted OR 3. Are unvaccinated THEN: 1. Stay home for 5 days. After that continue to wear a mask around others for 5 additional days. 2. If you can't quarantine you must wear a mask for 10 days. 3. Test on day 5 if possible. If you develop symptoms get a test and stay home. I had COVID-19 or I tested positive for COVID-19 and I have a weakened immune system If you have a weakened immune system (immunocompromised) due to a health condition or medication, you might need to stay home and isolate longer than 10 days. Talk to your healthcare provider for more information. Your doctor may work with an infectious disease expert at your local health department to determine when you can be around others. documented in this encounter [facility] Progress note 02-04-2021 Note Date & Type Note Facility 02-04-2021 Note HNO ID: [id number] Author: Peter Solis APRN.GRANT COORDINATOR Service: ? Author Type: Nurse Practitioner Type: Progress Notes Filed: 02/04/2021 10:56 AM Note Text: Subjective HPI HPI Charlie Devi is a 50 year old male who presents today for CC of close covid exposure, denies symptoms, needs test to return to work. Vaccinated for covid Smoker. .Patient presents with: Exposure: , + last tuesday No past medical history on file. No past surgical history on file. ALLERGIES Penicillins MEDICATIONS losartan (COZAAR) 50 mg tablet Take 50 mg by mouth. metFORMIN (GLUCOPHAGE) 1,000 mg tablet Take 1,000 mg by mouth. cyclobenzaprine (FLEXERIL) 10 mg tablet Take 1 tablet by mouth three times daily as needed for Muscle Spasm. Causes drowsiness. No family history on file. Social History Tobacco Use - Smoking status: Current Every Day Smoker - Smokeless tobacco: Never Used Substance Use Topics - Alcohol use: Not on file - Drug use: Not on file Review of Systems Constitutional: Negative for fever. HENT: Positive for congestion (chronic, lifelong). Negative for ear pain, nosebleeds and sore throat. Respiratory: Negative for cough, shortness of breath and wheezing. Musculoskeletal: Negative for neck pain. Objective Blood pressure 122/72, pulse 88, temperature 36.6 ?C (97.8 ?F), resp. rate 16, weight 102.1 kg (225 lb), SpO2 97 %. Physical Exam Constitutional: General: He is not in acute distress. Appearance: He is not toxic-appearing or diaphoretic. HENT: Head: Normocephalic and atraumatic. Cardiovascular: Rate and Rhythm: Normal rate and regular rhythm. Heart sounds: Normal heart sounds, S1 normal and S2 normal. Pulmonary: Effort: Pulmonary effort is normal. Breath sounds: Normal breath sounds. Neurological: Mental Status: He is alert and oriented to person, place, and time. Gait: Gait is intact. ASSESSMENT/PLAN: 1. Exposure to COVID-19 virus - ICD9: V01.79, ICD10: Z20.822 Test obtained Return if symptoms start - ASYMPTOMATIC ELECTIVE COVID-19 Peter Solis APRN.GRANT COORDINATOR [facility] Progress note 01-28-2021 Note Date & Type Note Facility 01-28-2021 Note HNO ID: [id number] Author: Susan Stinson APRN.GRANT COORDINATOR Service: ? Author Type: Nurse Practitioner Type: Progress Notes Filed: 01/28/2021 7:29 PM Note Text: This note was created using [employer]Center[employer]. Brandi Devi is a 50 year old male. 50 year old male with PMH NIDDM (Metformin AND Cozaar) presents with concerns for COVID. Acute onset a couple days ago. +stuffy nose +headache Denies SOB or dyspnea. Denies abdominal pain. Denies N/V/D. COVID vaccinated. Denies prior history of COVID. tested positive last night. Endorses his work is requesting a test. The history is provided by the patient. 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 URI There is no chest tightness, cough, difficulty breathing, frequent throat clearing, hemoptysis, hoarse voice, shortness of breath, sputum production or wheezing. This is a new problem. The current episode started in the past 7 days. The problem occurs constantly. The problem has been unchanged. Associated symptoms include headaches and rhinorrhea. Pertinent negatives include no appetite change, chest pain, dyspnea on exertion, ear congestion, ear pain, fever, heartburn, malaise/fatigue, myalgias, nasal congestion, orthopnea, PND, postnasal drip, sneezing, sore throat, sweats, trouble swallowing or weight loss. His symptoms are aggravated by nothing. His symptoms are alleviated by nothing. There are no known risk factors for lung disease. There is no history of asthma, bronchiectasis, bronchitis, COPD, emphysema or pneumonia. No past medical history on file. No past surgical history on file. ALLERGIES Penicillins MEDICATIONS losartan (COZAAR) 50 mg tablet Take 50 mg by mouth. metFORMIN (GLUCOPHAGE) 1,000 mg tablet Take 1,000 mg by mouth. cyclobenzaprine (FLEXERIL) 10 mg tablet Take 1 tablet by mouth three times daily as needed for Muscle Spasm. Causes drowsiness. No family history on file. Social History Tobacco Use - Smoking status: Current Every Day Smoker - Smokeless tobacco: Never Used Substance Use Topics - Alcohol use: Not on file - Drug use: Not on file Review of Systems Constitutional: Negative for appetite change, chills, diaphoresis, fatigue, fever, malaise/fatigue and weight loss. HENT: Positive for congestion and rhinorrhea. Negative for dental problem, drooling, ear pain, hoarse voice, postnasal drip, sneezing, sore throat and trouble swallowing. Eyes: Negative for photophobia, pain, discharge, redness, itching and visual disturbance. Respiratory: Negative for apnea, cough, hemoptysis, sputum production, choking, chest tightness, shortness of breath and wheezing. Cardiovascular: Negative for chest pain, dyspnea on exertion, palpitations, leg swelling and PND. Gastrointestinal: Negative for abdominal pain, diarrhea, heartburn, nausea and vomiting. Musculoskeletal: Negative for arthralgias, back pain and myalgias. Skin: Negative for color change, pallor, rash and wound. Allergic/Immunologic: Negative for environmental allergies, food allergies and immunocompromised state. Neurological: Positive for headaches. Negative for dizziness and facial asymmetry. Hematological: Negative for adenopathy. Does not bruise/bleed easily. Psychiatric/Behavioral: Negative for agitation and behavioral problems. Objective BP 140/66 Pulse 104 Temp 37.1 ?C (98.8 ?F) Resp 16 Wt 102.5 kg (226 lb) SpO2 96% Physical Exam Vitals and nursing note reviewed. Constitutional: General: He is not in acute distress. Appearance: Normal appearance. He is not ill-appearing, toxic-appearing or diaphoretic. HENT: Head: Normocephalic and atraumatic. Right Ear: External ear normal. Left Ear: External ear normal. Nose: Nose normal. No congestion or rhinorrhea. Mouth/Throat: Mouth: Mucous membranes are moist. Pharynx: Oropharynx is clear. No oropharyngeal exudate or posterior oropharyngeal erythema. Eyes: General: Right eye: No discharge. Left eye: No discharge. Extraocular Movements: Extraocular movements intact. Conjunctiva/sclera: Conjunctivae normal. Pupils: Pupils are equal, round, and reactive to light. Cardiovascular: Rate and Rhythm: Normal rate and regular rhythm. Pulses: Normal pulses. Heart sounds: Normal heart sounds. No murmur heard. No friction rub. No gallop. Pulmonary: Effort: Pulmonary effort is normal. No respiratory distress. Breath sounds: Normal breath sounds. No stridor. No wheezing, rhonchi or rales. Chest: Chest wall: No tenderness. Abdominal: General: Abdomen is flat. There is no distension. Palpations: Abdomen is soft. There is no mass. Tenderness: There is no abdominal tenderness. There is no guarding or rebound. Hernia: No hernia is present. Musculoskeletal: General: No swelling, tenderness, deformity or signs of injury. Normal range of motion. Cervical back: Normal range of motion and neck supple. No rigidity or tenderness. Right lower leg: N (more content not included)... 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 Advance Directives and Livin g Will Advance Directives and Livin g Will 02/16/2017 10:29 AM Power of Coke Crusher Operator Latest Code Status on File Code Status Date Activated Date Inactivated Comments Full Code 02/14/2017 8:58 AM 02/14/2017 6:24 PM Documents on File Type Date Recorded Patient Rewinder Operator Helper Expl anation Advance Directives and Livin g Will Advance Directives and Livin g Will 02/16/2017 10:29 AM Power of Coke Crusher Operator Latest Code Status on File Code Status Date Activated Date Inactivated Comments Full Code 02/14/2017 8:58 AM 02/14/2017 6:24 PM Discharge Instructions * Attachments The following attachments cannot be sent through Care Everywhere. * Chest Pain (Welsh) documented in this encounter* Attachments The following attachments cannot be sent through Care Everywhere. * Kidney Stone (Welsh) * Abdominal Pain (Welsh) documented in this encounter Assessments Diagnosis Chest pain, unspecified type Diagnosis Precordial pain Diagnosis Chest pain, unspecified type Diagnosis Pain of upper abdomen- Primary Abdominal pain, other specified site Renal colic Reason for Referral Status Reason Specialty Diagnoses / Procedures Referre d By Contact Referred To Contact Closed Cardiology Diagnoses Precordial pain Procedures ECHO Stress Test Zee Gilbert MD [address] [place] [address], [place] [address] Status Reason Specialty Diagnoses / Procedures Referre d By Contact Referred To Contact Closed Radiology Diagnoses Chest pain, unspecified type Procedures NM Myocardial Spect Rest Exercise or Rx Zee Gilbert MD [address] [place] [address], [place] [address] History of Present Illness * Rocío Rodriguez RN - 10/12/2019 12:50 PM EDT Attempted to contact patient to review instructions for Tuesday's scheduled Lexiscan nuclear stress test, but his cell phone mail box was full and I was unable to leave a message. documented in this encounter Health Concerns Infection Onset Date Last Indicated Resolved Time COVID-19 Rule-Out 10/05/2021 10/05/2021 Additional Source Comments (unrecognized sect ion and content) No Status Records FoundNo Status Records FoundNo Status Records FoundNo Status Records FoundNo Status Records Found INFORMATION SOURCE (unrecogn ized section and content) DATE CREATED AUTHOR AUTHOR'S ORGANIZ ATION 09/14/2017 [facility] DATE CREATED AUTHOR AUTHOR'S ORGANIZ ATION 11/02/2019 [facility] DATE CREATED AUTHOR AUTHOR'S ORGANIZ ATION 10/09/2021 [facility] DATE CREATED AUTHOR AUTHOR'S ORGANIZ ATION 01/25/2023 [facility] Reason for Visit (unrecogniz ed section and content) Reason Comments Abdominal Pain Source Comments (unrecognize d section and content) In the event this informatio n is protected by the Federal Confidentiality of Alcohol and Drug Abuse Patient Records regulations: The Federal rules restrict any use of the information to criminally investigate or prosecute any alcohol or drug abuse patient.[facility] Care Teams (unrecognized sec tion and content) FOR RECORDS PERTAINING TO PATIENTS WHO ARE OR HAVE BEEN ENROLLED IN A CHEMICAL DEPENDENCY/SUBSTANCEABUSE PROGRAM, SOME INFORMATION MAY BE OMITTED. This clinical summary was aggregated from multiple sources. Caution should be exercised in using it in the provision of clinical care. This summary normalizes information from multiple sources, and as a consequence, information in this document may materially change the coding, format and clinical context of patient data. In addition, data may be omitted in some cases. CLINICAL DECISIONS SHOULD BE BASED ON THE PRIMARY CLINICAL RECORDS. [facility] [employer] [facility] provides no warranty or guarantee of the accuracy or completeness of information in this document.
== END | disposition home or self-care (01) ==
PROVIDERS: PCP Family Medicine; Referring Provider Family Medicine; Visit Provider Family Medicine
DX: M79.605 Pain in left leg (principal)
CPT/HCPCS: 93971

== ENCOUNTER → 2023-06-01 | Outpatient (CLI) | payer OTHER, SELFPAY | END | disposition home or self-care (01) | PROVIDERS: PCP Family Medicine; Referring Provider Surgery; Visit Provider Surgery | DX: Z01.818 Encounter for other preprocedural examination (principal); K40.90 Unilateral inguinal hernia, without obstruction or gangrene, not specified as recurrent | CPT/HCPCS: 87081 ==

== ENCOUNTER 2023-07-07 07:54 | Day surgery (SDC) | payer OTHER, SELFPAY ==
[2023-06-15 16:06] LABS: Hemoglobin A1c 5.9 % (3.8-5.6)
[2023-07-07] VITALS (8 sets, daily range): BP systolic 97–132; BP diastolic 65–93; PULSE 72–89; RESP 16; TEMP 36.3–37.3; O2SAT 91–98; BMI 34.8
[2023-07-07 08:30] LABS: Hemoglobin 14.9 g/dL (13.0-16.5); Mean Corp Hgb Conc 34.7 g/dL (32-36); Mean Corpuscular Hgb 30.7 pg (27.0-32.0); Mean Corpuscular Volume 88.5 fL (80-94); Mean Platelet Vol. 9.9 fl (6.2-12.0); Platelet Count 280 K/mm3 (150-450); RBC Distribution Width CV 12.4 % (11.6-14.6); RBC Distribution Width SD 40.2 fl (35.1-43.9); Red Blood Count 4.86 M/mm3 (4.6-6.2); White Blood Count 9.5 K/mm3 (4.4-11.0)
[2023-07-07] MEDS: Lactated Ringers 1,000 ML 15 ML IV (08:40)
[2023-07-07 08:48] LABS: Anion Gap 5 (5-15); BUN 13 mg/dL (7-18); BUN/Creat Ratio 11.1 RATIO (10-20); Chloride 104 mmol/L (98-107); Creatinine, Serum 1.17 mg/dL (0.70-1.30); EST Glomerular Filtration Rate 70 mL/min (>60); Est Glom Filt Rate - Afr Amer 84 mL/min (>60); Estimated Creatinine Clearance 86.33 ml/min; Glucose 136 mg/dL (74-106); Potassium 4.2 mmol/L (3.5-5.1); Sodium Level 137 mmol/L (136-145)
--- NOTE | 2023-07-07 09:18 | HP.PCM_ITS ---
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 Accompanied by: Is patient in pain?: Yes Allergies Penicillins Allergy (Verified 06/01/23 08:16) Otheracetaminophen [From Tylenol] Adverse Reaction (Verified 06/01/23 08:16) Other Medications adalimumab 40 mg/0.4 mL subcutaneous pen kit (Humira(CF) Pen) 40 mg subcut Q2W 06/01/23 [History Confirmed 06/01/23] losartan 50 mg tablet 50 mg PO QDAY 06/01/23 [History Confirmed 06/01/23] metformin 1,000 mg tablet 1,000 mg PO BID 06/01/23 [History Confirmed 06/01/23] trazodone 100 mg tablet 100 mg PO QHS 06/01/23 [History Confirmed 06/01/23] PFSH Surgical History (Updated 06/01/23 @ 08:14 by Jaclyn Yan LPN) H/O left inguinal hernia repair Family History (Updated 06/01/23 @ 08:15 by Jaclyn Yan LPN) Father CVA (cerebral vascular accident) Social History (Updated 02/05/20 @ 14:12 by JANINE Hernandez) Smoking Status: Light Smoker (<10/day) HPI HPI HPI: Patient is a 53-year-old male who presents for complaint of a probable new right inguinal hernia. He is referred from Dr. Javed. Patient has very definitive and states it is a hernia. The base is a soft. History of a left-sided inguinal hernia that was reportedly operated on 30 years ago. To the best of Mr. Frankel's recall he does not believe that there was any mesh involved in the repair. This present finding was first noticed by patient a couple of months ago but he believes that it may have existed beyond this time. Patient is not able to recall how this occurred. His main complaint is for pain?particularly with sneezing. 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 He insists that his physical demands at work are not terribly significant as he generally to just maneuvering a pallet yamilet. About any impact to his bowel movements he immediately states that there has been, however, he shares this effect has been to have diarrhea all the time. He adds half the time of the he describes 1 episode of incontinence but otherwise states he does not suffer from this issue. He denies any feeling of the hernia protruding and unable to be put back in. Patient has a remote personal history of smoking (last smoked 2 years ago) and states that he also vapes every once in a while. Patient has no personal history of recurrent cutaneous infections including staph. Patient has a history of type 2 diabetes but is unable to recall when his last A1c was recorded or what that value was. He insists that he does not eat much sugar and his blood sugars when checked are normal. Patient has a history of psoriasis and is prescribed Humira. He states that he is due for his last injection later this week. He is concerned about when he needs to stop this medication if we proceed with surgery. He has no history of urinary retention. Pertinent surgical history includes: Patient has a history of left inguinal hernia repair as discussed above. ROS General General: Yes weight change (gain ) and fatigue; No appetite, colon cancer, breast cancer or weakness HEENT HEENT: No difficulty swallowing, eye injury, eye surgery, swollen glands or hoarseness Endo Endocrine: Yes diabetes mellitus; No thyroid disease, thyroid cancer, Hair loss, heat intolerance or cold intolerance Skin Skin: No rash or changing moles Musc Musculoskeletal: Yes arthritis; No back problems, rheumatoid arthritis, gout or joint pain Cardio Cardiovascular: Yes high blood pressure; No murmur, pacemaker, heart disease, atrial fibrillation, heart attack, heart stent, palpitations, shortness of breat with exertion or chest pain Psych Psychiatric: No depression, anxiety or hearing voices Resp Respiratory: No shortness of breath, No sleep apnea, No cough, No COPD, No asthma, No emphysema and No wheezing Gastro Gastrointestinal: Yes abdominal pain, No nausea or vomiting, Yes diarrhea, No constipation, No blood in stool, No acid reflux, No hemorrhoids, No ulcers, No gallbladder problem and No black,tarry stools Navdeep Hematologic: No blood thinners, No blood disorders, No bleeding, No anemia and No blood clots Neuro Neurologic: No numbness, No tingling and No weakness Exam Const General: cooperative and anxious Orientation: alert, awake and oriented x3 Resp Effort & Inspection: normal respiratory effort GI Other: Obese, history of visible in lower abdomen and upper anterior thigh. There is a well-healed scar in the left lower quadrant/pubic area. Other: Bilaterally descended testicles. No significant discomfort with exam of the left. Marked discomfort with exam of the right and palpable defect consistent with a right indirect type inguinal hernia Assessment and Plan Assessment and Plan (1) Right inguinal hernia: Status: Acute Comment: Patient is a 53-year-old male who presents with signs and symptoms of a right inguinal hernia. Indeed, on exam he has an apparent indirect type inguinal hernia. His primary complaint is for progressive discomfort. He has noticed some increased growth with this hernia as well. We had a lengthy discussion today regarding the likely origin of this hernia and that it could represent simple recanalization of the processes vaginalis. I also discussed that the likelihood of a bowel strangulation or incarceration event should be low, but that my recommendation remained the same that we proceed for surgical repair of this hernia. I discussed surgical options and ultimately recommended a minimally invasive approach with mesh. Patient was receptive of this recommendation and went on to discuss the need to have excellent glycemic control, mitigate risks to repair. Around the time for surgery by controlling issues like constipation, coughing, sneezing. We also discussed activity restr ictions of no lifting greater than 10 pounds x 5 weeks. Plan: ? Plan for robot-assisted right inguinal hernia repair with mesh ? Follow-up patient's most recent HbA1c testing ? Follow-up result of MRSA swab of the nares I have examined the patient and the H&P has been reviewed. There are no clinical changes since date of exam. Due to scheduling issues I did offer to perform the surgery for Dr. Bryant he was otherwise busy. The patient is agreeable. I discussed personally with him the risks of the procedure such as bleeding, infection, injury other organ such as the bowel, bladder, ureter or blood supply to the testicle. Patient understands all the risks and willing to proceed with robotic assisted laparoscopic right inguinal hernia repair with mesh. Justin Kerr MD Pager: [facility] [address] [place] [address], [address] [place] [address] Office:
[2023-07-07] MEDS: Clindamycin 900 MG/50 ML BAG 75 MG IV (09:59)
[2023-07-07] MEDS: Bupivacaine Mpf 0.5% 30 ML VIAL (11:00)
--- NOTE | 2023-07-07 11:25 | PCM.OPRPT ---
Report of Operation Date of Procedure: 07/07/23 Pre-Operative Diagnosis: Right inguinal hernia Post-Operative Diagnosis: Same Surgery/Procedure Performed:: Robotic assisted laparoscopic right inguinal hernia repair with mesh Type of Anesthesia: General/Regional Specimen's removed: None Estimated Blood Loss (mL): 10 Description of Procedure: Patient was brought back to the operating room and general anesthesia was induced. The abdomen was prepped and draped in usual sterile fashion. A midline incision was made superior to the umbilicus and the fascia was elevated and a Veress needle was placed into the abdomen. A drop test was performed. The abdomen was then insufflated to 15 mmHg. The Veress needle was removed and a port was placed into the abdomen. The camera was placed into the abdomen is inspected and there were no injuries from entry. Patient was placed in steep Trendelenburg position and he was inspected. He had a dimpling in the direct space as well as a small indirect hernia. Using direct visualization an 8 mm port was placed in the right lateral abdomen and left lateral abdomen. Robot was then docked. Using electrocautery scissors the right lower quadrant peritoneum was incised and dissection was carried inferiorly. The defect was much more medial than I would expect almost behind the bladder. The bladder was reflected downward and the hernia was identified. It was in the direct space but just more medial than normal. The hernia sac was reduced and the dissection was carried to the indirect space. The small hernia sac was reduced and the dissection was carried posteriorly until there was a good amount of space for overlap of mesh. Once dissection was finished the direct hernia was reapproximated using a running 0 STRATAFIX suture. Once the hernia defect was closed a full piece of ProGrip mesh was unfolded over the right inguinal space and placed. It covered both the direct and indirect defect with good overlap. The peritoneum was then reapproximated using a running V-Loc suture. There was a small rent in the peritoneum and so this was closed with another running V-Loc suture. At the end of the case the entire mesh was covered with peritoneum. Next the abdomen was allowed to desufflate and the ports were removed. The incision sites were injected with local anesthetic and closed with interrupted 4-0 Monocryl sutures. Steri-Strips and bandages were applied. Scrotum was checked at the end the case and contain both testicles. Patient was awoken and taken to PACU stable condition. Grafts/Implants Used: ProGrip mesh in the right groin Admit VTE Documentation VTE Mechan Device Prophylaxis: SCD's
--- NOTE | 2023-07-07 11:28 | DCINST_ITS ---
Discharge Instructions Procedure Hernia Diet Discharge Diet: Light diet - advance as tolerated Activity Discharge Activity: May Not Drive (for 2-3 days or while taking narcotic pain meds.) and May Shower (with the bandage in place 1-2 days after surgery.) Lifting Restrictions: 15 pounds for 4 weeks. Additional Activity Instructions:: Climbing stairs is fine, walking is encouraged. Sitting in bed may be uncomfortable. Sitting up using your lateral muscles (sitting up sideways) is usually more comfortable. Do not drive, work heavy equipment of sign legal documents for 24 hours. If your hernia repair was an inguinal repair, you may have scrotal swelling, an ice pack and/or athletic support can provide more comfort. Pain medications may cause nausea, you should typically eat light foods as you take your pain medications. Pain medications may also cause constipation. If you have difficulty with this, discuss with your doctor. Alternate ibuprofen and Tylenol for pain, oxycodone for breakthrough pain. Dressing / Incision Call your doctor if your incision/area has: Continuous Slow Oozing, Sudden Increased Bleeding, Increased Pain/ Swelling, Increased Redness and Foul Smelling Discharge Call your doctor if you observe: Fever of 101 or Higher Suture Line Care: Avoid Pulling/Pushing and Avoid Pinching/Bending Remove Dressing in: 2 days (Remove clear bandages in 2 days, remove Steri-Strips in 7 to 10 days.) Cleanse incision/area with: Soap & Water Follow Up Care Please Follow Up With: Justin Krer MD When: Please call to schedule 2 week follow up appointment. [phone] Test Results: Test results from this visit will be discussed in further detail at your follow- up appointment, if applicable. Discharge Plan Admission Attending Provider: Justin Kerr Primary Care Provider: Vik Javed Discharge Orders/Prescriptions Prescriptions: New oxycodone 5 mg tablet 5 - 10 mg PO Q6H PRN (Reason: pain) 5 Days Qty: 10 0RF No Action trazodone 100 mg tablet 100 mg PO QHS losartan 50 mg tablet 50 mg PO QHS metformin 1,000 mg tablet 1,000 mg PO BID Referrals / Follow Up: Vik Javed MD [Primary Care Provider] - Disposition Disposition (needs filled in before D/C Order can be placed): Home, Self Care
[2023-07-07] MEDS: oxyCODONE 5 MG Tablet PO (12:39)
[2023-07-07 13:51] LABS: Bedside Glucose 145 mg/dL (74-106)
[2023-07-07 13:51] LABS: Bedside Glucose 153 mg/dL (74-106)
== END 2023-07-07 12:57 | disposition home or self-care (01) ==
LOC: SDC 07:55 → AC 08:02
PROVIDERS: Anesthesiology; Surgery; PCP Family Medicine; Referring Provider Family Medicine; Visit Provider Surgery
PROC: (CPT 49650; principal; 2023-07-07 09:10)
DX: K40.90 Unilateral inguinal hernia, without obstruction or gangrene, not specified as recurrent (principal); E11.9 Type 2 diabetes mellitus without complications; F17.200 Nicotine dependence, unspecified, uncomplicated; Z79.84 Long term (current) use of oral hypoglycemic drugs; Z79.899 Other long term (current) drug therapy
CPT/HCPCS: 49650; S2900; 00840; 36415; 80048; 82962; 83036; 85027; J7120; J2405

== ENCOUNTER → 2023-09-16 | Outpatient (CLI) | payer OTHER, SELFPAY ==
[2023-09-20 14:10] LABS: QNTFERON TB Mitogen Value > 10.00 IU/mL (.); QNTFERON TB Nil Value 0 IU/mL (.); QNTFERON TB1+ Ag Value 0.01 IU/mL (.); QNTFERON TB2+ Ag Value 0.01 IU/mL (.); QNTIFERON TB Positive Criteria Negative (Negative)
== END | disposition home or self-care (01) ==
LOC: LAB 12:08
PROVIDERS: PCP Family Medicine; Referring Provider Physician Assistant; Visit Provider Physician Assistant
DX: L40.0 Psoriasis vulgaris (principal); L40.59 Other psoriatic arthropathy; L30.8 Other specified dermatitis; Z79.899 Other long term (current) drug therapy
CPT/HCPCS: 36415; 86480

== ENCOUNTER → 2024-08-20 | Outpatient (CLI) | payer OTHER, SELFPAY ==
[2024-08-22 13:08] LABS: QNTFERON TB Mitogen Value 5.67 IU/mL (.); QNTFERON TB Nil Value 0.01 IU/mL (.); QNTFERON TB1+ Ag Value 0.01 IU/mL (.); QNTFERON TB2+ Ag Value 0.01 IU/mL (.); QNTIFERON TB Positive Criteria Negative (Negative)
== END | disposition home or self-care (01) ==
LOC: MTLAB 12:34
PROVIDERS: PCP Family Medicine; Referring Provider Dermatology Pediatric Dermatology; Visit Provider Dermatology Pediatric Dermatology
DX: L40.0 Psoriasis vulgaris (principal); Z79.899 Other long term (current) drug therapy
CPT/HCPCS: 36415; 86480

== ENCOUNTER → 2024-10-19 | Outpatient (CLI) | payer OTHER, SELFPAY ==
[2024-10-19 14:02] LABS: Anion Gap 13 (5-15); BUN 10 mg/dL (4-19); BUN/Creat Ratio 13.0 RATIO (10-20); Calcium,Total 9.2 mg/dL (7.6-11.0); Carbon Dioxide 22.3 mmol/L (21.0-32.0); Chloride 104 mmol/L (98-108); Glucose 122 mg/dL (70-99); Magnesium 2.1 mg/dL (1.5-2.2); Potassium 4.2 mmol/L (3.3-5.1)
== END | disposition home or self-care (01) ==
LOC: MTLAB 11:31
PROVIDERS: PCP Family Medicine; Referring Provider Family Medicine; Visit Provider Family Medicine
DX: R25.2 Cramp and spasm (principal)
CPT/HCPCS: 36415; 80048; 83735